=== PATIENT | female | born 1940 | race Caucasian/White ===

== ENCOUNTER 2017-03-12 15:22 | Emergency (ER) | payer MEDICARE ==
[~2017-03-12] VITALS: Ht 157.5 cm; Wt 64.0 kg
[2017-03-12 16:00] LABS: HEMATOCRIT 29.8 % (34.6-47.8); HEMOGLOBIN 9.8 g/dL (11.7-16.4); WHITE BLOOD COUNT 10.1 x10^3/uL (3.4-10)
[2017-03-12] MEDS ORDERED: SODIUM CHLORIDE FLUSH 10ML SYR IVF ONE (16:00)
[2017-03-12 16:09] LABS: ASPARTATE AMINO TRANSFERASE 15 U/L (15-37); BLOOD UREA NITROGEN 20 mg/dL (7-18)
[2017-03-12] MEDS ORDERED: ONDA4TAB10 PO (16:21)
[2017-03-12] MEDS ORDERED: LEVO125T5 PO (16:21)
[2017-03-12] MEDS ORDERED: GLIP5TAB10 PO (16:21)
[2017-03-12] MEDS ORDERED: OMEP-110 PO (16:21)
[2017-03-12] MEDS ORDERED: ATOR-2 PO (16:21)
[2017-03-12] MEDS ORDERED: GABA300C10 PO (16:21)
[2017-03-12] MEDS ORDERED: ASPI-496 PO (16:21)
[2017-03-12] MEDS ORDERED: TICA90TA PO (16:21)
[2017-03-12] MEDS ORDERED: CHOL5000 PO (16:21)
[2017-03-12] MEDS ORDERED: ISOS30TA8 PO (16:21)
[2017-03-12] MEDS ORDERED: CARV-39 PO (16:21)
[2017-03-12] MEDS ORDERED: TRAZ50TA18 PO (16:21)
[2017-03-12] MEDS ORDERED: SODIUM CHLORIDE 0.9% 1,000ML IVBOLUS ONE ×2 (16:30→19:30)
[2017-03-12] MEDS ORDERED: HYDROmorphone 1 MG/ML, 1ML IM ONE (20:00)
[2017-03-12 20:37] VITALS: BP 129/79
== END 2017-03-12 20:54 | disposition home or self-care (01) ==
LOC: ED 20:52
DX: R10.11 Right upper quadrant pain (principal); R11.0 Nausea
CPT/HCPCS: 36415; 76700; 80053; 81003; 82962; 83690; 85025; 85610; 96360; 96361; 99285; J7030

== ENCOUNTER 2017-04-20 14:23 | Inpatient (IN) | payer MEDICARE ==
[~2017-04-20] VITALS: Ht 157.5 cm; Wt 63.7 kg
[~2017-04-20 14:23] MED LIST: ASPI-496 PO; ATOR-2 PO; CARV-39 PO; CHOL5000 PO; CIPR500T3 PO; CIPR500T87 PO; DICY10CA3 PO; GABA300C10 PO; GLIP5TAB10 PO; INSU100V8 SQ; ISOS30TA8 PO; LEVO125T5 PO; METR500T PO; METR500T8 PO; OMEP-110 PO; ONDA4TAB10 PO; SUCR1ORA5 PO; TICA90TA PO; TRAZ100T15 PO; TRAZ50TA18 PO
[2017-04-20] MEDS ORDERED: SODIUM CHLORIDE FLUSH 10ML SYR IVF ONE (15:00)
[2017-04-20] MEDS ORDERED: SODIUM CHLORIDE 0.9% 1,000ML IVBOLUS ONE (15:00)
[2017-04-20] MEDS ORDERED: ONDANSETRON 2MG/ML, 2ML IVPush ONE ×2 (15:00→17:30)
[2017-04-20 15:31] LABS: HEMATOCRIT 38.5 % (34.6-47.8); HEMOGLOBIN 12.6 g/dL (11.7-16.4); WHITE BLOOD COUNT 11.5 x10^3/uL (3.4-10)
[2017-04-20 15:35] LABS: ASPARTATE AMINO TRANSFERASE 19 U/L (15-37); BLOOD UREA NITROGEN 8 mg/dL (7-18)
[2017-04-20] MEDS ORDERED: ONDANSETRON 2MG/ML, 2ML ONE ×2 (15:41→17:22)
[2017-04-20] MEDS ORDERED: ONDANSETRON ODT 4 MG PO ONE (16:30)
[2017-04-20 16:39] LABS: PATH.CAST-FLAG NOT PRESENT; SPERM-FLAG NOT PRESENT; SRC-FLAG NOT PRESENT; XTAL-FLAG NOT PRESENT; YLC-FLAG NOT PRESENT
[2017-04-20] MEDS ORDERED: MORPHINE SULFATE 4 MG/ML, 1ML IVPush PRN (17:00)
[2017-04-20] MEDS ORDERED: SODIUM CHLORIDE 0.9% 1,000 ML IV ONE (17:27)
[2017-04-20] MEDS ORDERED: SODIUM CHLORIDE FLUSH 10ML SYR IVF PRN (17:30)
[2017-04-20] MEDS ORDERED: OMNIPAQUE 350 MG/ML, 100ML BOTTLE ONE (18:33)
[2017-04-20] MEDS ORDERED: hydrALAzine 20 MG/ML, 1ML IVPush PRN (19:00)
[2017-04-20] MEDS ORDERED: ONDANSETRON 2MG/ML, 2ML IVPush PRN (19:00)
[2017-04-20] MEDS ORDERED: ACETAMINOPHEN 325 MG TABLET PO PRN (19:00)
[2017-04-20] MEDS ORDERED: GLUCAGON 1 MG IM PRN (19:00)
[2017-04-20] MEDS ORDERED: BISACODYL 10 MG SUPP PR PRN (19:00)
[2017-04-20] MEDS ORDERED: DEXTROSE 50%, 50ML SYRINGE IVPush PRN ×2 (19:00→20:00)
[2017-04-20] MEDS ORDERED: PROMETHAZINE 25 MG/ML, 1ML IM PRN (19:00)
[2017-04-20] MEDS ORDERED: DEXTROSE 4 GM TAB.CHEW PO PRN (19:00)
[2017-04-20] MEDS ORDERED: CIPROFLOXACIN/PMX 400MG/200ML 200 ML ONE (19:34)
[2017-04-20] MEDS ORDERED: PROMETHAZINE 25 MG/ML, 1ML ONE (19:34)
[2017-04-20] MEDS: CIPROFLOXACIN/PMX 400MG/200ML 200 ML IV SCH (19:41)
[2017-04-20] MEDS: NS + 20MEQ KCL 1,000 ML IV SCH (20:30)
[2017-04-20 21:00] VITALS: BP 192/92
[2017-04-20] MEDS: INSULIN DETEMIR 100 UNITS/ML, PEN SQ-INSULIN SCH ×2 (21:00→22:00)
[2017-04-20] MEDS: TICAGRELOR 90 MG TABLET PO SCH (21:14)
[2017-04-20] MEDS: HEPARIN 5,000 UNITS/ML, 1ML SQ SCH (21:14)
[2017-04-20] MEDS: SODIUM CHLORIDE FLUSH 10ML SYR IVF SCH (21:14)
[2017-04-20] MEDS: CARVEDILOL 25 MG TABLET PO SCH (21:15)
[2017-04-20] MEDS: ATORVASTATIN 80 MG TABLET PO SCH (21:15)
[2017-04-20] MEDS: SUCRALFATE 1 GM/10 ML UDC PO SCH (21:15)
[2017-04-20] MEDS: TRAZODONE 50MG TABLET PO SCH (21:15)
[2017-04-20] MEDS: ONDANSETRON 2MG/ML, 2ML IVPush PRN (21:25)
[2017-04-20] MEDS: morphine SULFATE 10 MG/ML, 1ML IVPush PRN (21:25)
[2017-04-20] MEDS: METRONIDAZOLE PMX 500MG/100ML 100 ML IV SCH (21:30)
[2017-04-20] MEDS: INSULIN ASPART 100 UNITS/ML, PEN SQ-INSULIN SCH (22:01)
[2017-04-21 01:18] VITALS: BP 107/68
[2017-04-21 05:32] LABS: HEMATOCRIT 33.3 % (34.6-47.8); HEMOGLOBIN 10.9 g/dL (11.7-16.4); WHITE BLOOD COUNT 9.4 x10^3/uL (3.4-10)
[2017-04-21] MEDS: HEPARIN 5,000 UNITS/ML, 1ML SQ SCH ×3 (05:42→22:15)
[2017-04-21] MEDS: METRONIDAZOLE PMX 500MG/100ML 100 ML IV SCH ×3 (05:42→22:16)
[2017-04-21 05:45] LABS: ASPARTATE AMINO TRANSFERASE 10 U/L (15-37); BLOOD UREA NITROGEN 11 mg/dL (7-18)
[2017-04-21 07:23] VITALS: BP_SYST 120; BP_SYST 98; BP_DIAS 61; BP_DIAS 73
[2017-04-21] MEDS: SUCRALFATE 1 GM/10 ML UDC PO SCH ×4 (08:00→20:41)
[2017-04-21] MEDS: CHOLECALCIFEROL 1,000 UNIT TABLET PO SCH (08:01)
[2017-04-21] MEDS: ASPIRIN 81 MG TABLET EC PO SCH (08:03)
[2017-04-21] MEDS: CARVEDILOL 25 MG TABLET PO SCH ×2 (08:03→20:39)
[2017-04-21] MEDS: TICAGRELOR 90 MG TABLET PO SCH ×2 (08:04→20:39)
[2017-04-21] MEDS: ISOSORBIDE MONONITRATE ER 30 MG TABLET PO SCH (08:04)
[2017-04-21] MEDS: LEVOTHYROXINE 125 MCG TABLET PO SCH (08:05)
[2017-04-21] MEDS: INSULIN ASPART 100 UNITS/ML, PEN SQ-INSULIN SCH ×4 (08:06→20:40)
[2017-04-21] MEDS: CIPROFLOXACIN/PMX 400MG/200ML 200 ML IV SCH ×2 (08:07→20:39)
[2017-04-21] MEDS: SODIUM CHLORIDE FLUSH 10ML SYR IVF SCH ×2 (08:07→20:39)
[2017-04-21] MEDS: ONDANSETRON 2MG/ML, 2ML IVPush PRN ×2 (08:08→20:45)
[2017-04-21] MEDS ORDERED: POTASSIUM CHLORIDE 40 MEQ in SODIUM CHLORIDE 0.9% 500 ML IV ONE (12:30)
[2017-04-21 12:54] VITALS: BP 88/42
[2017-04-21 16:24] VITALS: BP 95/57
[2017-04-21] MEDS: NS + 20MEQ KCL 1,000 ML IV SCH ×2 (16:32→18:30)
[2017-04-21 19:38] VITALS: BP 125/59
[2017-04-21] MEDS: ATORVASTATIN 80 MG TABLET PO SCH (20:39)
[2017-04-21] MEDS: HYDROcodone/APAP 5/325 TABLET PO PRN (20:39)
[2017-04-21] MEDS: TRAZODONE 50MG TABLET PO SCH (20:39)
[2017-04-21] MEDS: INSULIN DETEMIR 100 UNITS/ML, PEN SQ-INSULIN SCH (20:40)
[2017-04-22 02:56] VITALS: BP 108/62
[2017-04-22] MEDS: HYDROcodone/APAP 5/325 TABLET PO PRN ×2 (03:10→11:41)
[2017-04-22] MEDS: ONDANSETRON 2MG/ML, 2ML IVPush PRN ×2 (03:40→09:34)
[2017-04-22 04:38] LABS: HEMATOCRIT 27.9 % (34.6-47.8); HEMOGLOBIN 9.4 g/dL (11.7-16.4); WHITE BLOOD COUNT 6.9 x10^3/uL (3.4-10)
[2017-04-22 04:45] LABS: BLOOD UREA NITROGEN 10 mg/dL (7-18)
[2017-04-22] MEDS: NS + 20MEQ KCL 1,000 ML IV SCH ×2 (05:25→15:00)
[2017-04-22] MEDS: HEPARIN 5,000 UNITS/ML, 1ML SQ SCH ×2 (05:26→14:00)
[2017-04-22] MEDS: LEVOTHYROXINE 125 MCG TABLET PO SCH (05:26)
[2017-04-22] MEDS: METRONIDAZOLE PMX 500MG/100ML 100 ML IV SCH ×2 (05:26→14:00)
[2017-04-22 06:55] VITALS: BP 107/67
[2017-04-22] MEDS: INSULIN ASPART 100 UNITS/ML, PEN SQ-INSULIN SCH ×2 (07:00→11:42)
[2017-04-22] MEDS: SUCRALFATE 1 GM/10 ML UDC PO SCH ×2 (08:00→11:41)
[2017-04-22] MEDS: morphine SULFATE 10 MG/ML, 1ML IVPush PRN (08:00)
[2017-04-22] MEDS: CIPROFLOXACIN/PMX 400MG/200ML 200 ML IV SCH (08:00)
[2017-04-22] MEDS: SODIUM CHLORIDE FLUSH 10ML SYR IVF SCH (09:34)
[2017-04-22] MEDS: CARVEDILOL 25 MG TABLET PO SCH (11:40)
[2017-04-22] MEDS: TICAGRELOR 90 MG TABLET PO SCH (11:40)
[2017-04-22] MEDS: ASPIRIN 81 MG TABLET EC PO SCH (11:40)
[2017-04-22] MEDS: CHOLECALCIFEROL 1,000 UNIT TABLET PO SCH (11:41)
[2017-04-22] MEDS: ISOSORBIDE MONONITRATE ER 30 MG TABLET PO SCH (11:41)
[2017-04-22 12:57] VITALS: BP 118/64
== END 2017-04-22 15:45 | disposition home or self-care (01) | DRG 683 ==
LOC: ED 18:06 → EDIP 18:14 → 3NW 20:13
PROVIDERS: ADMIT Family Medicine; ATTEND Family Medicine
DX: N17.9 Acute kidney failure, unspecified (principal); K57.92 Diverticulitis of intestine, part unspecified, without perforation or abscess without bleeding; D75.89 Other specified diseases of blood and blood-forming organs; E11.9 Type 2 diabetes mellitus without complications; E03.9 Hypothyroidism, unspecified; E78.5 Hyperlipidemia, unspecified; E86.0 Dehydration; E87.6 Hypokalemia; I10 Essential (primary) hypertension; I25.10 Atherosclerotic heart disease of native coronary artery without angina pectoris; Z79.4 Long term (current) use of insulin; Z82.49 Family history of ischemic heart disease and other diseases of the circulatory system; Z86.73 Personal history of transient ischemic attack (TIA), and cerebral infarction without residual deficits; Z95.5 Presence of coronary angioplasty implant and graft; R11.2 Nausea with vomiting, unspecified
CPT/HCPCS: 36415; 74177; 80048; 80053; 81001; 82962; 83036; 83690; 83735; 85025; 96361; 96372; 96374; 96376; J0744; J1644; J1815; J2405; J2550; J3480; Q9967; J2270; J7030; J7040